=== PATIENT | male | born 1950 | race Caucasian/White ===

== ENCOUNTER 2021-04-07 10:53 | Emergency (ER) | payer OTHER, MEDICARE, SELFPAY ==
--- NOTE | 2021-04-07 | XRR_ITS ---
[facility] Final Radiology Report Call: [phone] assistance Online chat: [email or web address] Name: ALFRED SUE Age: 71Years M Date: 04/07/2021 SSN: -- : 1950 Study: XR CHEST 1 VIEW Requesting Physician: JOSE BURK Images: 1 Add?l Studies: Provided Clinical History: PROCEDURE INFORMATION: Exam: XR Chest Exam date and time: 04/07/2021 11:35 AM Age: 71 years old Clinical indication: Cardiovascular condition or disease; Patient HX: Lt arm pain, HX of copd TECHNIQUE: Imaging protocol: XR of the chest. Views: 1 view. COMPARISON: CR Chest 1 [place] [id number] 10/29/2016 8:07 AM FINDINGS: Lungs: Unremarkable. No consolidation. Pleural spaces: Unremarkable. No pleural effusion. No pneumothorax. Heart/Mediastinum: Unremarkable. No cardiomegaly. Bones/joints: There is a thoracolumbar scoliosis. IMPRESSION: No acute cardiopulmonary abnormality. Thank you for allowing us to participate in the care of your patient. Dictated and Authenticated by: Kenney Salazar MD 04/07/2021 12:59 PM Central Time ([place] & Norm) ANAY
[2021-04-07 11:13] VITALS: BP 158/62; PULSE 70; RESP 20; TEMP 36.9; O2SAT 96; BMI 24.4
--- NOTE | 2021-04-07 11:32 | ECG_ITS ---
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 Measurements Intervals [place] Rate: 63 P: 70 SD: 206 QRS: 65 QRSD: 87 T: 69 QT: 367 QTc: 376 Interpretive Statements SINUS RHYTHM No previous ECG available for comparison Electronically Signed On 04-07-2021 18:08:59 CDT by Andrey Laird M.D. [email or web address]/store/[id number] f
--- NOTE | 2021-04-07 11:35 | W.ED.EXTPRO ---
HPI - Extremity Problem General: Chief complaint: Extremity Problem,Nontraumatic Stated complaint: L ARM PAIN Time Seen by Provider: 04/07/21 11:10 Source: patient Mode of arrival: EMS Limitations: no limitations History of Present Illness: HPI Narrative: This 71-year-old male presents to the emergency department with left upper extremity pain. Pain started suddenly about 2 hours ago while he was riding on his tractor. Symptoms started with nausea and pain in his left arm and he is concerned about a possible myocardial infarction. He denies any chest pain or dizziness. He is very anxious and worried. He has a history of COPD and still smokes cigarettes. No prior cardiac history. MD Complaint: extremity pain Onset (ago): hour(s) (2) Pain Consistency: constant Location: left and upper extremity Quality: sharp Radiation: proximal Relieving factors: nothing Exacerbating factors: palpation Associated symptoms: Deny arthralgias, chest pain, fever(s), myalgias, rash or short of breath Review of Systems General: Reports: 10 or more systems reviewed and unremarkable except in HPI and below Const: Denies: fever(s) Card: Denies: chest pain Skin/Breast: Denies: rash Physical Exam Const: COMMON NORMALS: no acute distress, average body habitus, patient oriented x3, no limitations, healthy appearing, alert and well nourished HENMT: COMMON NORMALS: normocephalic, atraumatic and moist oral mucous membranes HEAD & SCALP: normocephalic and atraumatic Neck/C-Spine: COMMON NORMALS: no meningeal signs and no JVD Chest: COMMONS NORMALS: normal inspection of the chest and normal palpation of entire chest wall Resp: COMMON NORMALS: normal respiratory effort, No retractions, No use of accessory muscles, clear to auscultation bilaterally and percussion normal AUSCULTATION: clear to auscultation bilaterally PERCUSSION: percussion normal Cardio: COMMON NORMALS: no JVD, regular rate, regular rhythm, S1 normal heart sound present, S2 normal heart sound present, No gallops present (Cardio), No clicks present (Cardio), No murmurs present (Cardio), No rub (Cardio) and Peripheral pulses 2+ throughout RATE: regular rate RHYTHM: regular rhythm HEART SOUNDS: S1 normal heart sound present and S2 normal heart sound present PERIPHERAL PULSES: Peripheral pulses 2+ throughout GI: COMMON NORMALS: Normal to inspection, nondistended, normoactive bowel sounds present, Soft to palpation, non-tender, No hepatosplenomegaly present, no masses and no bruits PALPATION: Yes Soft to palpation and Yes No hepatosplenomegaly present Extremity: COMMON NORMALS: normal to inspection, full ROM, capillary refill normal, no calf tenderness and no pedal edema LEFT UPPER EXTREMITY: Yes upper arm Left upper arm: Yes inspection (no obvious abnormality), Yes palpation (belly of the biceps and the biceps tendon very tender. Speed test positive) and Yes neurovascular exam (intact) Neuro: COMMON NORMALS: patient oriented x3 SENSORIUM/ORIENTATION: Yes alert MENINGEAL SIGNS: Yes no meningeal signs Skin: COMMON NORMALS: no rashes or lesions noted, no wounds, turgor normal, no jaundice, no petechiae and no mottling GENERAL SKIN EXAM: no rashes or lesions noted and turgor normal Course Reevaluation(s): Reevaluation #1: Discussed his lab and imaging findings with him. Negative for acute findings Explained to him that his symptoms are consistent with biceps tendinitis. We will discharge him home with a prescription for oral steroids. He voiced understanding and is in agreement with the plan. Time: 13:47 Vital Signs: Vital signs: Vital Signs Temperature 98.5 F 04/07/21 11:13 Pulse Rate 66 04/07/21 13:14 Respiratory Rate 20 H 04/07/21 13:14 Blood Pressure 133/67 04/07/21 13:14 Pulse Oximetry 97 04/07/21 13:14 MDM - Extremity (Nontraumatic) MDM Narrative: Medical decision making narrative: 71-year-old male who presents to the emergency department with left arm pain that started this morning. He was concerned about a myocardial infarction so he came to the emergency department to be evaluated. Examination and evaluation is consistent with biceps tendinitis. He is discharged home with a prescription for oral steroids. Heart score is 3 for age and risk factors, meaning he is a low risk, 1.7% risk of a major adverse cardiac event within the next 6 weeks. Initial baseline high-sensitivity troponin is normal. Medical Records: Attestation: I reviewed the patient's medical records. Lab Data: Attestation: I reviewed the patient's lab results. Labs: Lab Results 04/07/21 04/07/21 04/07/21 Range/Units 12:21 12:21 12:21 WBC 12.1 H (4.0-10.0) 10^3/ uL RBC 3.94 L (4.1-5.3) 10^6/u L Hgb 12.6 (11.7-16.6) g/dL Hct 37.6 L (42.0-52.0) % MCV 95.4 H (80-94) fL MCH 32.0 (28.0-34.0) pg MCHC 33.5 (30.0-36.0) g/dL RDW 13.9 (12.1-15.1) % Plt Count 342 (130-400) 10^3/c mm MPV 9.4 (7.4-10.4) fL Neut % (Auto) 80.1 % Lymph % (Auto) 9.1 % [place] % (Auto) 8.2 % Eos % (Auto) 1.6 % Baso % (Auto) 0.8 % Neut # (Auto) 9.72 H (1.8-7.7) 10^3/u L Lymph # (Auto) 1.1 (0.8-4.8) 10^3/u L [place] # (Auto) 1.0 H (0.2-0.9) 10^3/u L Eos # (Auto) 0.2 (0.0-0.8) 10^3/u L Baso # (Auto) 0.1 (0.0-0.1) 10^3/u L Nucleated RBC % (a uto) 0 % Nucleated RBCs # 0.0 /100WBC Sodium 131 L (136-145) mmol/L Potassium 5.0 (3.5-5.1) mmol/L Chloride 95 L (98-107) mmol/L Carbon Dioxide 26 (22-29) mmol/L Anion Gap 15.0 (5-19) BUN 7 L (8-23) mg/dL Creatinine 0.6 L (0.7-1.2) mg/dL GFR Calculation Not Reportable Glucose 83 (65-115) mg/dL Calculated Osmolal ity 269 L (285-295) mOsm/k g Calcium 8.8 (8.5-10.5) mg/dL Total Bilirubin 0.6 (0.15-1.2) mg/dL AST 35 (0-40) U/L ALT 20 (0-41) U/L Alkaline Phosphata se 51 (40-130) IU/L Creatine Kinase 56 (39-308) U/L Troponin T Baselin e 6 (0-15) ng/L C-Reactive Protein 3.0 (0.0-4.9) mg/L Total Protein 6.9 (6.6-8.7) g/dL Albumin 4.0 (3.5-5.2) g/dL Globulin 2.9 (1.3-4.6) g/dL Lipase 33 (13-60) U/L Imaging Data^: CXR: Attestation: I personally reviewed and interpreted this imaging study as follows: My impression: Hyperinflated lungs with no infiltrates or other acute findings. EKG Data^: EKG 1: Attestation: I personally reviewed and interpreted this EKG as follows: EKG interpretation date: 04/07/21 EKG interpretation time: 11:52 Prior EKG tracings: not available for review Interpretation: Sinus rhythm. Heart rate 63 bpm. Normal axis. No ST changes. EKG 2: Attestation: I personally reviewed and interpreted this EKG as follows: EKG interpretation date: 04/07/21 EKG interpretation time: 13:38 Prior EKG tracings: available for review Interpretation: Sinus rhythm. Heart rate 63 bpm. Normal axis. No ST changes. No significant change from earlier today. Discharge Plan Discharge Patient Disposition: Home Clinical Impression: Biceps tendinitis Qualifiers: Laterality: left Qualified Code(s): M75.22 - Bicipital tendinitis, left shoulder Condition: Stable Prescriptions: New prednisone 20 mg tablet 40 mg PO DAILY 5 Days Qty: 10 RF: 0 Continued albuterol sulfate 2.5 mg /3 mL (0.083 %) Solution For Nebulization 2.5 mg INHALATION QID PRN (Reason: Shortness Of Breath) RF: 0 albuterol sulfate 90 mcg/actuation Hfa Aerosol Inhaler 2 puff INHALATION QID PRN (Reason: Shortness Of Breath) RF: 0 potassium gluconate 595 mg (99 mg) Tablet 595 mg PO DAILY RF: 0 Discharge Orders: Discharge ED (Routine); Ordered 04/07/21 Ordered By: Radha Escobar Discharge Diet: Usual diet Discharge Activity: Limit activity as instructed Patient Instructions: Tendinitis (ED) Activity Restrictions/Additional Instructions: Return for any new or worsening symptoms. Follow up with your primary care provider within 3 days. Rest your left arm for the next few days and do not use it for any strenuous activities. Continue home medications. Take the steroids as prescribed. Coding Level of Care Code ED Professor Of Literature for Brandyn Fwjacinta Exam Comprehensive
[2021-04-07 12:24] VITALS: BP 166/88; PULSE 72; RESP 16; O2SAT 96
[2021-04-07 12:29] LABS: Basophils # 0.1 10^3/uL (0.0-0.1); Basophils % 0.8 %; Eosinophils # 0.2 10^3/uL (0.0-0.8); Eosinophils % 1.6 %; Hematocrit 37.6 % (42.0-52.0); Hemoglobin 12.6 g/dL (11.7-16.6); Lymphocytes # 1.1 10^3/uL (0.8-4.8); Lymphocytes % 9.1 %; Mean Corpuscular HGB Conc 33.5 g/dL (30.0-36.0); Mean Corpuscular Volume 95.4 fL (80-94); Mean Platelet Volume 9.4 fL (7.4-10.4); Monocytes % 8.2 %; Neutrophils # 9.72 10^3/uL (1.8-7.7); Neutrophils % 80.1 %; Nucleated Red Blood Cells % 0 %; Platelet Count 342 10^3/cmm (130-400); Red Blood Count 3.94 10^6/uL (4.1-5.3); Red Cell Distribution Width 13.9 % (12.1-15.1); White Blood Count 12.1 10^3/uL (4.0-10.0)
[2021-04-07 12:54] LABS: Alanine Aminotransferase 20 U/L (0-41); Alkaline Phosphatase 51 IU/L (40-130); Blood Urea Nitrogen 7 mg/dL (8-23); Calcium 8.8 mg/dL (8.5-10.5); Carbon Dioxide 26 mmol/L (22-29); Chloride 95 mmol/L (98-107); Creatine Phosphokinase 56 U/L (39-308); Globulin 2.9 g/dL (1.3-4.6); Glucose 83 mg/dL (65-115); Lipase 33 U/L (13-60); Osmolality Calculated 269 mOsm/kg (285-295); Sodium 131 mmol/L (136-145); Total Bilirubin 0.6 mg/dL (0.15-1.2); Total Protein 6.9 g/dL (6.6-8.7)
[2021-04-07 12:57] LABS: Aspartate Amino Transferase 35 U/L (0-40)
[2021-04-07 12:58] LABS: Troponin(5th) Baseline 6 ng/L (0-15)
[2021-04-07 13:14] VITALS: BP 133/67; PULSE 66; RESP 20; O2SAT 97
--- NOTE | 2021-04-07 13:32 | ECG_ITS ---
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 Measurements Intervals [place] Rate: 63 P: 153 [place]: 199 QRS: 105 QRSD: 89 T: 129 QT: 372 QTc: 383 Interpretive Statements SINUS RHYTHM ARM LEADS REVERSED [INVERTED P AND QRS IN I] ATYPICAL ECG No previous ECG available for comparison Electronically Signed On 04-07-2021 18:11:46 CDT by Andrey Laird M.D. [email or web address] regional medical centerAbaad Embodied Design LLCsycamore medical centerChromatin/store/NU/[id number] f
[2021-04-07] MEDS: ketorolac 30 mg/mL INJ IVP (13:54)
[2021-04-07 13:57] VITALS: BP 168/83; PULSE 66; RESP 20; O2SAT 96
[2021-04-07 14:04] VITALS: BP 143/82; PULSE 67; RESP 18; TEMP 37.2
[2021-04-07 14:45] LABS: Troponin 5 2HR Delta 0 ABS# (0-10)
== END 2021-04-07 14:18 | disposition home or self-care (01) ==
PROVIDERS: Emergency Provider Family Medicine
DX: M75.22 Bicipital tendinitis, left shoulder (principal)
CPT/HCPCS: 36415; 71045; 80053; 82550; 83690; 84484; 85025; 86140; 93005; 96374; 99284; J1885

== ENCOUNTER 2021-08-23 11:50 | Observation (INO) | payer OTHER, MEDICARE, SELFPAY ==
[2021-08-23] VITALS (14 sets, daily range): BP systolic 135–177; BP diastolic 74–112; PULSE 89–101; RESP 17–30; TEMP 36.4–36.8; O2SAT 84–96; BMI 20.2
--- NOTE | 2021-08-23 11:51 | W.ED.SOB ---
HPI - SOB/Dyspnea General: Chief Complaint: Shortness of Breath/Dyspnea Stated Complaint: SOB Time Seen by Provider: 08/23/21 11:50 History of Present Illness: HPI Narrative: Mr. Yeung is a 71-year-old gentleman with history of tobaccoism (working on quitting smoking) and almost certainly COPD who presents to the emergency department due to shortness of breath. He has a longstanding history of cough and shortness of breath that is worse with exertion however this is been worse over the past few days have markedly worse today. Cough is productive and he describes rattling in his chest. Symptom onset is moderate. Course has been worsening. He has been out of his home albuterol but does not feel like it helps at baseline. Denies sick contacts. He has been vaccinated against Covid. No other signs of systemic illness, changes in health, exacerbating, or alleviating factors identified. Review of Systems General: Reports: 10 or more systems reviewed and unremarkable except in HPI and below PFSH ED PFSH: Medical History COPD (chronic obstructive pulmonary disease) Smoking addiction Surgical History History of tonsillectomy Hx of appendectomy Family History (Updated 08/23/21 @ 19:26 by Antonio Mckeon MD) Other No significant family history Social History Smoking and tobacco status: current every day smoker Quit status (tobacco): considering quitting Alcohol intake: current Alcohol type: beer Alcohol use comment: cutting down to 2 cans per day Substance/Drug Use: never Lives independently: Yes Marital status: / Current occupational status: retired Physical Exam Narrative: EXAM NARRATIVE: GENERAL/CONSTITUTIONAL -chronically ill-appearing. Increased respiratory effort Eyes - PERRL, no conjunctival injection ENMT - Atraumatic external nose and ears. Poor dentition. Moist mucous membranes NECK - supple. trachea midline CARDIOVASCULAR - regular rate and rhythm. Normal peripheral perfusion RESPIRATORY - coarse to auscultation bilaterally. Tachypnea. Mild accessory muscle use. Supplemental oxygen in place. ABDOMEN/GI - Nontender/Nondistended. MSK - Extremities without obvious deformity or tenderness to palpation SKIN - Warm, Dry NEURO - alert and appropriately oriented. Moves all extremities equally. Course ED course: - Patient was seen and evaluated by me at bedside - Patient placed on cardiac monitors, IV access obtained - Initial evaluation notable for exam as above, respiratory distress with new oxygen requirement -Treatment ordered - Labs notable for no leukocytosis, metabolic panel with mild likely dehydration reflected by hyponatremia, AST is elevated mildly greater than ALT. Procalcitonin negative. Delta troponin negative. - Imaging notable for no lobar consolidation. - Upon serial reexamination after treatment the patient was mildly improved. Similar with repeat RT treatment. - Based on patient history, evaluation, labs, and imaging as interpreted the most likely cause of the patient's condition is exacerbation of COPD with acute hypoxic respiratory failure reflected by hypoxemia on room air - The results of ED evaluation were discussed with the patient including plan for admission due to requirement for level of care not available if discharged to prevent significant worsening/deterioration. - Hospitalist service contacted and agreed admit the patient observation for treatment. - Patient was admitted without further deterioration or significant events. Vital Signs: Vital signs: Vital Signs Temperature 98.2 F 08/24/21 20:27 Pulse Rate 90 08/24/21 20:27 Respiratory Rate 20 H 08/24/21 20:27 Blood Pressure 136/72 08/24/21 20:27 Pulse Oximetry 106 H 08/24/21 20:27 MDM - SOB/Dyspnea Medical Records: Attestation: I reviewed the patient's medical records. Lab Data: Attestation: I reviewed the patient's lab results. Labs: Lab Results 08/23/21 08/23/21 08/23/21 12:28 12:28 12:46 WBC RBC Hgb Hct MCV MCH MCHC RDW Plt Count MPV Neut % (Auto) Lymph % (Auto) [place] % (Auto) Eos % (Auto) Baso % (Auto) Neut # (Auto) Lymph # (Auto) [place] # (Auto) Eos # (Auto) Baso # (Auto) Nucleated RBC % (a uto) Nucleated RBCs # Specimen Type Arterial Sample Site Radial, left ABG pH 7.44 (7.35-7.45) ABG pCO2 47.5 mmHg H mmHg (35-45) ABG pO2 60.1 mmHg L mmHg (80.0-100.0) ABG HCO3 32.3 mmol/L H mmo l/L (22-26) ABG Base Excess 7.0 mmol/L H mmol /L (-2.0-2.0) Anthony Test Pos Hematocrit 43.8 % % (42-52) Hgb O2 Saturation 90.8 % L % (95-100) Carboxyhemoglobin 0.9 %THgb %THgb (0.4-20.1) Methemoglobin 0.6 % % (0.4-1.5) Total Hemoglobin 14.3 g/dL g/dL (14-18) O2 Delivery Device Nc O2 Liters/Min 2.0 % % FiO2 28.0 % % Production Proofreader ID Ed Sodium Potassium Chloride Carbon Dioxide Anion Gap BUN Creatinine GFR Calculation Glucose Calculated Osmolal ity Calcium NT-Pro-B Natriuret Pep Procalcitonin Influenza Type A A g Negative (Negative) Influenza Type B A g Negative (Negative) SARS-CoV-2 Ag (Rap id) Negative (Negative) 08/23/21 08/23/21 12:47 12:47 WBC 13.6 10^3/uL H 10 ^3/uL (4.0-10.0) RBC 4.42 10^6/uL 10^6 /uL (4.1-5.3) Hgb 14.0 g/dL g/dL (11.7-16.6) Hct 42.3 % % (42.0-52.0) MCV 95.7 fl H fl (80-94) MCH 31.7 pg pg (28.0-34.0) MCHC 33.1 g/dL g/dL (30.0-36.0) RDW 12.7 % % (12.1-15.1) Plt Count 430 10^3/cmm H 10 ^3/cmm (130-400) MPV 10.5 fL H fL (7.4-10.4) Neut % (Auto) 72.5 % % Lymph % (Auto) 10.0 % % [place] % (Auto) 8.9 % % Eos % (Auto) 6.1 % % Baso % (Auto) 2.3 % % Neut # (Auto) 9.87 10^3/uL H 10 ^3/uL (1.8-7.7) Lymph # (Auto) 1.4 10^3/uL 10^3/ uL (0.8-4.8) [place] # (Auto) 1.2 10^3/uL H 10^ 3/uL (0.2-0.9) Eos # (Auto) 0.8 10^3/uL 10^3/ uL (0.0-0.8) Baso # (Auto) 0.3 10^3/uL H 10^ 3/uL (0.0-0.1) Nucleated RBC % (a uto) 0 % % Nucleated RBCs # 0.0 /100WBC /100W BC Specimen Type Sample Site ABG pH ABG pCO2 ABG pO2 ABG HCO3 ABG Base Excess Anthony Test Hematocrit Hgb O2 Saturation Carboxyhemoglobin Methemoglobin Total Hemoglobin O2 Delivery Device O2 Liters/Min FiO2 Production Proofreader ID Sodium 133 mmol/L L mmol /L (136-145) Potassium 4.4 mmol/L mmol/L (3.5-5.1) Chloride 93 mmol/L L mmol/ L (98-107) Carbon Dioxide 28 mmol/L mmol/L (22-29) Anion Gap 16.4 (5-19) BUN 9 mg/dL mg/dL (8-23) Creatinine 0.5 mg/dL L mg/dL (0.7-1.2) GFR Calculation Not Reportable Glucose 87 mg/dL mg/dL (65-115) Calculated Osmolal ity 274 mOsm/kg L mOs m/kg (285-295) Calcium 9.3 mg/dL mg/dL (8.5-10.5) NT-Pro-B Natriuret Pep 507 pg/mL H pg/mL (0-125) Procalcitonin 0.04 ng/mL ng/mL (0-0.5) Influenza Type A A g Influenza Type B A g SARS-CoV-2 Ag (Rap id) EKG Data^: EKG 1: Attestation: I personally reviewed and interpreted this EKG as follows: EKG Interpretation Date: 08/23/21 EKG interpretation time: 12:29 Interpretation: Twelve-lead EKG shows a regular rhythm at a rate of 86. [place] interval 169, QRS duration 83, QTc 387. Normal axis. Interpretation: Sinus rhythm. Discharge Plan Discharge Patient Disposition: Admitted As Inpatient Admit Provider: Antonio Mckeon Condition: Stable Discharge Diet: Advance as tolerated Discharge Activity: Increase activity as tolerated and Oxygen as instructed Coding Level of Care Code ED Firewood Cutter for Chg Fwd
--- NOTE | 2021-08-23 12:08 | XRR_ITS ---
PROCEDURE INFORMATION: Exam: XR Chest Exam date and time: 08/23/2021 12:08 PM Age: 71 years old Clinical indication: Cough and shortness of breath; Additional info: Cough, SOB TECHNIQUE: Imaging protocol: XR of the chest. Views: 1 view. COMPARISON: CR XR chest 1V portable [id number] 04/07/2021 11:35 AM FINDINGS: Lungs: Unremarkable. No consolidation. Pleural spaces: Unremarkable. No pleural effusion. No pneumothorax. Heart/Mediastinum: Unremarkable. No cardiomegaly. Bones/joints: Dorsal spine osteoarthritis and levoscoliosis. Other findings: No interval changes seen comparing to prior. XR/XR chest 1V portable [id number] IMPRESSION: 1. No acute findings. 2. Dorsal spine osteoarthritis and levoscoliosis Radiation Dose CTDIVOL = (mGy): DLP = (mGy-cm)
--- NOTE | 2021-08-23 12:08 | ECG_ITS ---
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
--- NOTE | 2021-08-23 12:31 | PC.NURSE ---
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
[2021-08-23] MEDS: ipratropium-albuterol 3 mL Neb 9 ML INHALATION (12:44)
[2021-08-23 12:56] LABS: ABG PCO2 47.5 mmHg (35-45); ABG PH Result 7.44 (7.35-7.45); Arterial Blood Gas Hematocrit 43.8 % (42-52); Blood Gas Allen Test Pos; Blood Gas Operator Identificat ED; Blood Gas Sample Site Radial, left; Blood Gas Sample Type Arterial; Carboxyhemoglobin 0.9 %THgb (0.4-20.1); HCO3 ABG 32.3 mmol/L (22-26); HGB O2 Sat 90.8 % (95-100); Methemoglobin 0.6 % (0.4-1.5); Oxygen Device NC; PO2 ABG 60.1 mmHg (80.0-100.0); Total Hemoglobin 14.3 g/dL (14-18)
[2021-08-23 13:22] LABS: Basophils # 0.3 10^3/uL (0.0-0.1); Basophils % 2.3 %; Eosinophils # 0.8 10^3/uL (0.0-0.8); Eosinophils % 6.1 %; Hematocrit 42.3 % (42.0-52.0); Lymphocytes # 1.4 10^3/uL (0.8-4.8); Mean Corpuscular HGB Conc 33.1 g/dL (30.0-36.0); Mean Corpuscular Hemoglobin 31.7 pg (28.0-34.0); Mean Corpuscular Volume 95.7 fl (80-94); Mean Platelet Volume 10.5 fL (7.4-10.4); Monocytes # 1.2 10^3/uL (0.2-0.9); Monocytes % 8.9 %; Neutrophils # 9.87 10^3/uL (1.8-7.7); Neutrophils % 72.5 %; Nucleated Red Blood Cells % 0 %; Platelet Count 430 10^3/cmm (130-400); Red Blood Count 4.42 10^6/uL (4.1-5.3); Red Cell Distribution Width 12.7 % (12.1-15.1); White Blood Count 13.6 10^3/uL (4.0-10.0)
[2021-08-23 13:26] LABS: NT Pro B Type Natriuretic Pept 507 pg/mL (0-125); Procalcitonin 0.04 ng/mL (0-0.5)
[2021-08-23 13:36] LABS: Anion Gap 16.4 (5-19); Blood Urea Nitrogen 9 mg/dL (8-23); Calcium 9.3 mg/dL (8.5-10.5); Carbon Dioxide 28 mmol/L (22-29); Chloride 93 mmol/L (98-107); Glucose 87 mg/dL (65-115); Osmolality Calculated 274 mOsm/kg (285-295); Potassium 4.4 mmol/L (3.5-5.1); Sodium 133 mmol/L (136-145)
[2021-08-23 13:47] LABS: Influenza A by IFA Negative (Negative); SARS Covid-2 Antigen Negative (Negative)
[2021-08-23 13:48] LABS: Influenza B by IFA Negative (Negative)
[2021-08-23] MEDS: benzonatate 100 mg Capsule PO (14:24)
[2021-08-23] MEDS: ipratropium-albuterol 3 mL Neb INHALATION ×2 (15:39→20:47)
[2021-08-23] MEDS: doxycycline 100 MG in sodium chloride 0.9% (plus) 100 ML IV (16:30)
--- NOTE | 2021-08-23 19:16 | P.HP_ITS ---
Providers/Chief Complaint Admitting Physician: Antonio Mckeon Chief Complaint: SOB History of Present Illness 71-year-old gentleman comes in due to progressive shortness of breath, productive cough with purulent sputum, wheezing, has run out of albuterol at home, reports that he is currently quitting smoking. He has history of COPD. Not normally using supplemental oxygen. He denies other symptoms. Recently filled out power of consumer attorney healthcare paperwork for his brother, however, states it is not yet notarized. He states he would not want prolonged life support, or multiple repeat attempts of CPR. Review of Systems Const: Denies: fever(s), chills, body aches or malaise Eyes: Denies: change in vision or eye redness ENMT: Denies: throat pain, oral sores or ear or mastoid pain Card: Denies: chest pain, edema or pre-syncope Resp: Reports: dyspnea, productive cough, wheezing and change in phlegm color; Denies: hemoptysis GI: Denies: abdominal pain, nausea, vomiting, diarrhea, constipation, hematochezia or melena : Denies: flank pain, difficulty urinating, urinary frequency or hematuria Musc: Denies: back pain, joint swelling or joint redness Skin/Breast: Denies: rash, sores or new lesions Neuro: Denies: headache(s), numbness in extremities, weakness in extremities, dizziness, confusion or seizure-like activity Endo: Denies: polyuria or polydipsia [place]/Lymph: Denies: easy bleeding or purpura All/Imm: Denies: urticaria, throat swelling or tongue swelling Medications/Allergies Home Medications Medication Instructions Recorded Confirmed Last Taken Type albuterol sulfate 2 puff INHALATION QID PRN 04/07/21 08/23/21 04/07/21 History albuterol sulfate 2.5 mg INHALATION QID PRN 04/07/21 08/23/21 04/05/21 History Allergies Allergy/AdvReac Type Severity Reaction Status Date / Time morphine Allergy Unknown Verified 08/23/21 12:00 PFSH Acute PFSH: Medical History COPD (chronic obstructive pulmonary disease) Smoking addiction Surgical History History of tonsillectomy Hx of appendectomy Family History (Updated 08/23/21 @ 19:26 by Antonio Mckeon MD) Other No significant family history Social History Smoking and tobacco status: current every day smoker Quit status (tobacco): considering quitting Alcohol intake: current Alcohol type: beer Alcohol use comment: cutting down to 2 cans per day Substance/Drug Use: never Lives independently: Yes Marital status: / Current occupational status: retired Vitals/I&O/Wt Last Vital Signs Temp 98.2 F 08/23/21 11:52 Pulse 101 H 08/23/21 16:27 Resp 18 08/23/21 16:27 BP 141/86 08/23/21 16:27 Pulse Ox 87 L 08/23/21 17:19 Weight last 48 hrs Weight 65.771 kg Physical Exam Const: COMMON NORMALS: no acute distress and patient oriented x3 HENMT: COMMON NORMALS: oropharynx normal Neck/C-Spine: COMMON NORMALS: no JVD Resp: COMMON NORMALS: normal respiratory effort and clear to auscultation bilaterally AUSCULTATION: rhonchi, wheezes and diminished lung sounds Cardio: COMMON NORMALS: no JVD, regular rhythm, S1 normal heart sound present, S2 normal heart sound present and No murmurs present (Cardio) RHYTHM: regular rhythm HEART SOUNDS: S1 normal heart sound present and S2 normal heart sound present GI: COMMON NORMALS: Normal to inspection, nondistended, normoactive bowel sounds present, Soft to palpation and non-tender PALPATION: Yes Soft to palpation Extremity: COMMON NORMALS: no joint enlargement and no pedal edema Neuro: COMMON NORMALS: patient oriented x3 and moves all extremities Skin: COMMON NORMALS: no rashes or lesions noted GENERAL SKIN EXAM: no rashes or lesions noted Data : 08/23/21 12:47 08/23/21 12:47 A&P Assessment and plan (1) COPD exacerbation: Severe COPD exacerbation, with wheezing, productive cough with purulent sputum, dyspnea, hypoxia, did not respond to albuterol at home, ran out of albuterol. This came here. We will give coverage with Levaquin, continue Solu-Medrol, breathing treatments, oxygen support. Guaifenesin. Collect sputum culture. Negative rapid flu and COVID-19 antigens. Denies other COVID-19 symptoms. Likely may need oxygen at discharge. Status: Acute (2) Smoking addiction: Has been trying to quit. Using lozenges at home. Is running out. Discussed smoking cessation with him for 4 minutes. He is agreeable to continue nicotine lozenges. Will provide patches as well. And would benefit from refill on lozenges at discharge. Continue to encourage cessation. Status: Acute (3) Hypoxia: Severe COPD exacerbation. No chest pain. No hemoptysis. PE low risk by Wells score, but monitor for changes in symptoms. Rapid antigen COVID-19 and influenza negative. Partially vaccinated for COVID- 19. Denies other symptoms of COVID-19. Monitor for changes. Status: Acute Attestations Medical Necessity Statement*: Place in observation for assessment and management of severe COPD exacerbation, with new hypoxia, previously not requiring oxygen. Coding Level of Care Code Acute Catering Coordinator for Brandyn Babin Diagnoses COPD exacerbation J44.1 Smoking addiction F17.200 Hypoxia R09.02
[2021-08-23] MEDS: levofloxacin-dextrose 5 % 750 MG/150 ML PREMIX 100 MG IV (20:59)
[2021-08-24] VITALS (10 sets, daily range): BP systolic 105–148; BP diastolic 67–80; PULSE 90–112; RESP 17–20; TEMP 36.6–36.8; O2SAT 92–106
[2021-08-24] MEDS: ipratropium-albuterol 3 mL Neb INHALATION ×3 (02:27→15:54)
[2021-08-24 05:22] LABS: Basophils % 0.2 %; Hematocrit 41.2 % (42.0-52.0); Hemoglobin 13.1 g/dL (11.7-16.6); Lymphocytes # 0.3 10^3/uL (0.8-4.8); Lymphocytes % 5.2 %; Mean Corpuscular HGB Conc 31.8 g/dL (30.0-36.0); Mean Corpuscular Hemoglobin 31.9 pg (28.0-34.0); Mean Corpuscular Volume 100.2 fl (80-94); Mean Platelet Volume 10.2 fL (7.4-10.4); Monocytes # 0.2 10^3/uL (0.2-0.9); Monocytes % 3.3 %; Neutrophils # 5.76 10^3/uL (1.8-7.7); Nucleated Red Blood Cells % 0 %; Platelet Count 357 10^3/cmm (130-400); Red Blood Count 4.11 10^6/uL (4.1-5.3); Red Cell Distribution Width 13.1 % (12.1-15.1); White Blood Count 6.3 10^3/uL (4.0-10.0)
[2021-08-24 05:48] LABS: Albumin Level 3.6 g/dL (3.5-5.2); Alkaline Phosphatase 47 IU/L (40-130); Blood Urea Nitrogen 15 mg/dL (8-23); Calcium 8.9 mg/dL (8.5-10.5); Carbon Dioxide 23 mmol/L (22-29); Chloride 95 mmol/L (98-107); Globulin 3.2 g/dL (1.3-4.6); Glucose 187 mg/dL (65-115); Osmolality Calculated 278 mOsm/kg (285-295); Sodium 131 mmol/L (136-145); Total Bilirubin 0.3 mg/dL (0.15-1.2); Total Protein 6.8 g/dL (6.6-8.7)
[2021-08-24 05:52] LABS: Alanine Aminotransferase 11 U/L (0-41); Anion Gap 17.6 (5-19); Aspartate Amino Transferase 50 U/L (0-40); Potassium 4.6 mmol/L (3.5-5.1)
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
== END 2021-08-24 18:30 | disposition home or self-care (01) ==
LOC: ER 18:41 → MEDSURG 19:03
PROVIDERS: Admitting Provider Internal Medicine; Emergency Provider Emergency Medicine; Visit Provider Internal Medicine
DX: J44.1 Chronic obstructive pulmonary disease with (acute) exacerbation (principal); R09.02 Hypoxemia; F17.200 Nicotine dependence, unspecified, uncomplicated
CPT/HCPCS: 36415; 36600; 71045; 80048; 80053; 82805; 83880; 84145; 85025; 87426; 87804; 93005; 94640; 94664; 96365; 96375; 99285; G0378; J1956; J2920; J2930; J3490